=== PATIENT | male | born 1945 | race Two or more races ===

== ENCOUNTER 2024-10-25 15:01 | Emergency (ER) | payer BC, OTHER ==
[~2024-10-25] VITALS: Ht 160 cm; Wt 113.0 kg
--- NOTE | 2024-10-25 16:00 | DVH ---
EXAM: XY CHEST PORTABLE TECHNIQUE: Single frontal chest radiograph CLINICAL HISTORY: SYNCOPE COMPARISON: None Findings/Impression: Frontal chest radiograph demonstrates no acute osseous or superficial soft tissue abnormalities. The trachea is midline. The cardiac silhouette and mediastinum are within normal limits. 0.8 cm nodule along the right lateral lower lung field may relfect a calficied granuloma versus pulmo nary nodule. No pneumothorax, pleural effusions, or consolidations.
[2024-10-25 16:20] LABS: Alanine Aminotransferase 10 U/L (7-40); Albumin 4.6 g/dL (3.2-4.8); Alkaline Phosphatase 95 U/L (46-116); Anion Gap 9 (5-15); BUN/Creatinine Ratio 13.1 (10.0-20.0); Bilirubin, Total 0.7 mg/dL (0.2-1.0); Blood Urea Nitrogen 20 mg/dL (9-23); Calcium 9.8 mg/dL (8.7-10.4); Carbon Dioxide 24 mmol/L (20-31); Chloride 102 mmol/L (98-107); Potassium 4.3 mmol/L (3.5-5.1); Total Protein 7.9 g/dL (5.7-8.2)
[2024-10-25 16:24] LABS: Aspartate Aminotransferase 12 U/L (13-40); Glucose 137 mg/dL (74-106); Sodium 135 mmol/L (136-145)
[2024-10-25 16:29] LABS: Basophils # (auto) 0 10 ^3/uL (0-0.2); Basophils % (auto) 0.8 % (0.0-2.0); Eosinophils # (auto) 0.1 10 ^3/uL (0-0.8); Eosinophils % (auto) 2.3 % (0.0-7.0); Hematocrit 42.5 % (41.0-53.0); Hemoglobin 14.2 g/dL (13.5-17.5); Lymphocytes # (auto) 1.7 10 ^3/uL (0.4-5.4); Lymphocytes % (auto) 29.6 % (10.0-50.0); Mean Corpuscular Hemoglobin 31.5 pg (28.0-32.0); Mean Corpuscular Hgb Conc. 33.4 g/dL (32.0-36.0); Mean Corpuscular Volume 94.2 fL (80.0-100.0); Monocytes # (auto) 0.4 10 ^3/uL (0-1.3); Monocytes % (auto) 7.2 % (0.0-12.0); Neutrophils # (auto) 3.5 10 ^3/uL (1.6-8.6); Neutrophils % (auto) 60.1 % (37.0-80.0); Nucleated Red Blood Cells % 0.1 %; Platelet Count (auto) 260 10^3/uL (140-450); Red Blood Cells 4.51 10^6/uL (4.5-5.90); Red Cell Distribution Width 14.5 % (11.8-14.3); White Blood Cell 5.8 10^3/uL (4.4-10.8)
--- NOTE | 2024-10-25 16:39 | ED.PDOC ---
HPI Comments Marc HPI: Poor Historian. HPI: 79 y/o M, presents to the ED for CC of dizziness. Patient was sitting on the couch today and then when he was trying to get up to go to the bathroom as soon as he got up he felt very lightheaded and fell back into the couch without any head injury or loss of consciousness. Patient states he took all his morning blood pressure medications which he does not recall. patient is unable to recall name of prescriptions. Patient is a poor historian and no other medical history is obtainable at this time. Initial Vitals: Temp:97.1 BP:125/70 HR:65 RR:18 O2 Sat.:98 Past Medical History:HTN Past Surgical History: Denies Social History: Denies smoking, ETOH, and drug use Medication: Denies Allergies: NKDA REVIEW OF SYSTEMS: CONSTITUTIONAL: Denies acute: fever, diaphoresis, chills, HEAD: Denies acute: headache, photophobia Eyes: Denies acute: Double vision, vision loss, eye pain, eye discharge. EARS: Denies acute: tinnitus, hearing loss, ear discharge, ear pain, THROAT: Denies acute: sore throat, swelling, difficulty swallowing , pain with swa llowing, change in voice. NECK: Denies acute: neck pain, neck swelling, stiff neck. HEART: Denies acute : chest pain, palpitations, LUNGS: Denies acute: SOB, wheezing, cough, hemoptysis ABDOMEN: Denies acute: abdominal pain, Nausea, Vomiting, diarrhea, melena , hematemesis, hematochezia SKIN: Denies acute: rash, redness, lesions, itchiness. EXTREMITIES: Denies acute: calf pain, numbness, tingling, weakness, denies pain in extremity. Denies acute: Low back pain. Neuro: Denies acute: focal neurological deficit, motor or sensory focal neurological deficit, tremors, seizure like activity, confusion, , change in mental status, loss of bowel or bladder function, cauda equina like symptoms. : Denies acute: dysuria, hematuria, flank pain, increase in urinary frequency. PSYCH: Denies acute: hallucination, suicidal ideation, homicidal ideation. PHYSICAL EXAM: General: no acute distress, awake and alert. Head: normocephalic, atraumatic. Neck: supple, trachea is midline, no swelling. Throat: Normal phonation. Eyes:, no erythema, no purulent discharge, no proptosis, no icterus. Heart: regular rate, regular rhythm, no significant murmur appreciated. Lungs: no apparent respiratory distress, Able to speak in full sentences. No wheezing, no rhonchi, no crackles. No stridors Clear to auscultation bilaterally. Abdomen: non tender to palpation, non distended, soft, no guarding, no rebound, + bowel sounds. Neuro: Awake, Alert, oriented to name, self, situation, follows commands GCS=15. Speech is normal. Skin: no petechia, no purpura, no cyanosis, non-pale, not jaundice. Lower extremities: --trace bilateral- Pitting edema no deformity, no focal swelling, no calf TTP. Makes eye contact. moves all four extremities. Face: no apparent facial droop. No CVA tenderness to percussion bilaterally. Chief Complaint: Syncope Time Seen by MD: 16:20 Reviewed Notes: Nurses Notes, Medications, Allergies Information Source: Patient Mode of Arrival: EMS Severity: Moderate Timing: Hours Duration: Since onset Prehospital treatment: None Onset: At Rest Cardiac Risk Factors: None PE Risk Factors: None History of: None Associated Signs and Symptoms: None Was a procedure done? Was a procedure done?: No CP Differential Dx Differential Diagnosis: N/A Differential Diagnosis: Other (Includes but not limited to thyroid disease, encephalopathy, electrolyte abnormality, sepsis, infection, intracranial pathology, drug adverse effects, arrhythmia, kidney insufficiency, ACS, CVA, malignancy, anemia) X-Ray, Labs, Meds, VS Vital Signs Date Time Temp Pulse Resp B/P (MAP) Pulse Ox O2 Delivery O2 Flow Rate FiO2 10/26/24 01:01 72 16 97 Room Air* 0 21 10/26/24 00:04 138/75 (96) 10/25/24 23:50 98.5 76 17 127/72 (90) 96 98.5 10/25/24 15:22 97.0 65 18 125/70 (88) 98 10/25/24 15:03 66 Lab Test 10/25/24 18:57 10/25/24 16:56 10/25/24 16:55 10/25/24 15:46 Range/Units Troponin I High Sensitivity 34 35 37 </=54 ng/L Urine Color Yellow Yellow Urine Clarity Turbid H Clear Urine pH 5.5 5.0-9.0 Urine Specific [place]y 1.024 1.001-1.035 Urine Protein 1+ H Negative Urine Ketones Negative Negative Urine Blood Negative Negative /uL Urine Nitrite Negative Negative Urine Bilirubin Negative Negative Urine Urobilinogen 3 H Negative mg/dL Urine Leukocyte Esterase Negative Negative /uL Urine RBC 2 0 - 3 /hpf Urine Microscopic WBC 3 0-3 /HPF Urine Squamous Epithelial Cells Few <5 /hpf Urine Amorphous Crystals Few None Seen /hpf Urine Bacteria None seen None Seen /hpf Urine Hyaline Casts Many 0 - 2 /lpf Urine Mucus Few None Seen Urine Glucose Normal Normal mg/dL Urine Opiates Screen Neg NEGATIVE Urine Fentanyl Screen Neg NEGATIVE Urine Barbiturates Screen Neg NEGATIVE Urine Phencyclidine Screen Neg NEGATIVE Urine Amphetamines Screen Neg NEGATIVE Urine Benzodiazepines Screen Neg NEGATIVE Urine Cocaine Screen Neg NEGATIVE Urine Cannabinoids Screen Neg NEGATIVE White Blood Count 5.8 4.4-10.8 10^3/uL Red Blood Count 4.51 4.5-5.90 10^6/uL Hemoglobin 14.2 13.5-17.5 g/dL Hematocrit 42.5 41.0-53.0 % Mean Corpuscular Volume 94.2 80.0-100.0 fL Mean Corpuscular Hemoglobin 31.5 28.0-32.0 pg Mean Corpuscular Hemoglobin Concent 33.4 32.0-36.0 g/dL Red Cell Distribution Width 14.5 H 11.8-14.3 % Platelet Count 260 140-450 10^3/uL Mean Platelet Volume 8.0 6.9-10.8 fL Neutrophils (%) (Auto) 60.1 37.0-80.0 % Lymphocytes (%) (Auto) 29.6 10.0-50.0 % Monocytes (%) (Auto) 7.2 0.0-12.0 % Eosinophils (%) (Auto) 2.3 0.0-7.0 % Basophils (%) (Auto) 0.8 0.0-2.0 % Neutrophils # (Auto) 3.5 1.6-8.6 10 ^3/uL Lymphocytes # (Auto) 1.7 0.4-5.4 10 ^3/uL Monocytes # (Auto) 0.4 0-1.3 10 ^3/uL Eosinophils # (Auto) 0.1 0-0.8 10 ^3/uL Basophils # (Auto) 0 0-0.2 10 ^3/uL Nucleated Red Blood Cells 0.1 % D-Dimer, Quantitative 0.60 H 0.0-0.49 mg/L FEU Sodium Level 135 L 136-145 mmol/L Potassium Level 4.3 3.5-5.1 mmol/L Chloride Level 102 98-107 mmol/L Carbon Dioxide Level 24 20-31 mmol/L Anion Gap 9 5-15 Blood Urea Nitrogen 20 9-23 mg/dL Creatinine 1.53 H 0.700-1.30 mg/dL Glomerular Filtration Rate Calc 46 >90 mL/min BUN/Creatinine Ratio 13.1 10.0-20.0 Serum Glucose 137 H 74-106 mg/dL Lactic Acid Level 1.7 0.4-2.0 mmol/L Calcium Level 9.8 8.7-10.4 mg/dL Total Bilirubin 0.7 0.2-1.0 mg/dL Aspartate Amino Transferase (AST) 12 L 13-40 U/L Alanine Aminotransferase (ALT) 10 7-40 U/L Alkaline Phosphatase 95 46-116 U/L B-Type Natriuretic Peptide 110.34 0-100 pg/mL Total Protein 7.9 5.7-8.2 g/dL Albumin 4.6 3.2-4.8 g/dL [place] [address] Ph: [phone] DIAGNOSTIC IMAGING Diagnostic Imaging Report : [id number] Signed PATIENT: VERONICA PEREZ ACCT: [id number] UNIT: [id number] : 1945 LOC: ER ROOM / BED: / AGE / SEX: 79 / M ADM STATUS: REG ER SERVICE 1532 ORDERING PHYSICIAN: MIGUEL ÁNGEL GRANADOS DO PROCEDURE(s): CXRP - CHEST PORTABLE REASON: SYNCOPE ORDER NUMBER(s): [id number], ACCESSION NUMBER(s): [id number] EXAM: XY CHEST PORTABLE TECHNIQUE: Single frontal chest radiograph CLINICAL HISTORY: SYNCOPE COMPARISON: None Findings/Impression: Frontal chest radiograph demonstrates no acute osseous or superficial soft tissue abnormalities. The trachea is midline. The cardiac silhouette and mediastinum are within normal limits. 0.8 cm nodule along the right lateral lower lung field may relfect a calficied granuloma versus pulmonary nodule. No pneumothorax, pleural effusions, or consolidations. ATED BY: ALEAH LÓPEZ DO DICTATED DATE/TIME: 10/25/241557 SIGNED BY: ALEAH LÓPEZ DO SIGNED DATE/TIME: 10/25/241557 CC: [place] [id number] Ph: [phone] DIAGNOSTIC IMAGING Diagnostic Imaging Report : [id number] Signed PATIENT: VERONICA PEREZ ACCT: [id number] UNIT: [id number] : 1945 LOC: ER ROOM / BED: / AGE / SEX: 79 / M ADM STATUS: REG ER SERVICE 17 ORDERING PHYSICIAN: MIGUEL ÁNGEL GRANADOS DO PROCEDURE(s): CTACH - CT ANGIO CHEST CONTRAST REASON: near syncope ORDER NUMBER(s): [id number], ACCESSION NUMBER(s): [id number] INDICATION: near syncope COMPARISON: None TECHNIQUE: Multidetector CTA of the chest was performed of the chest with 100 cc of intravenous contrast. PULMONARY ANGIOGRAPHY PROTOCOL was utilized using a bolus-tracking technique centered on the main pulmonary artery. Axial, coronal and sagittal multiplanar and MIP reformats were performed. Radiation Dose : 1. Chest: CTDI volume is 27.37 mGy. Dose-length product is 1104.57 mGy*cm The dose indicators for CT are the volume Computed Tomography (CT) Dose Index (CTDIvol) and the Dose Length Product (DLP), and are measured in units of mGy and mGy-cm, respectively. These indicators are not patient dose, but values generated from the CT scanner acquisition factors. The report includes radiation exposure data for exposures received during this examination. Findings: Thyroid gland with no obvious nodules. Inadequate contrast bolus timing within the pulmonary arteries to evaluate for pulmonary embolism with no pulmonary embolism noted centrally. Can not exclude pulmonary embolism within the distal segmental and subsegmental pulmonary arteries. The pulmonary trunk is normal in size. No evidence of aortic aneurysm. Mild atherosclerotic calcification of the aorta. Mild cardiomegaly with slight reflux of contrast into the IVC. [id number] atherosclerotic calcification of the coronary arteries. There appears to be partially calcified mediastinal and right hilar lymph nodes Right anterior upper lobe and bibasilar atelectasis. Calcified granuloma within the right lower lobe. No pneumothorax, pleural effusion or focal airspace consolidation. Cholelithiasis with no evidence of acute cholecystitis. Calcified granulomas within the spleen. Mild hepatomegaly. 2.2 cm left adrenal nodule measuring up to 22 Hounsfield units with additional 1.9 cm left adrenal nodule measuring up to 2 Hounsfield units which may represent an adenoma. There is 1.6 cm right adrenal nodule measuring up to 17 Hounsfield units. Mild esophageal and gastric wall thickening. The soft tissues are unremarkable. No evidence of acute bony abnormalities. Slightly increased cortical sclerosis of the posterior ribs. IMPRESSION: Inadequate contrast bolus timing within the pulmonary arteries to evaluate for pulmonary embolism with no pulmonary embolism noted centrally. Can not exclude pulmonary embolism within the distal segmental and subsegmental pulmonary arteries. No evidence of aortic aneurysm. Limited evaluation for dissection. Mild cardiomegaly with slight reflux of contrast into the IVC. Correlate for right heart dysfunction. Wall thickening of the esophagus and stomach. Correlate for esophagitis and gastritis respectively. Bilateral adrenal nodules. Cholelithiasis with no evidence of acute cholecystitis. ATED BY: NATASHA KOHLI DO DICTATED DATE/TIME: 10/25/242122 SIGNED BY: NATASHA KOHLI DO SIGNED DATE/TIME: 10/25/242122 CC: Time of 1ST Reevaluation: 16:50 Reevaluation 1ST: Unchanged Time of 2ND Reevaluation: 00:05 (Orthostatics were obtained and are unremarkable. Patient denies any dizziness on reassessment) Reevaluation 2ND: Resolved Time of 3RD Reevaluation: 00:28 (Friends/family members at bedside at this time. Patient has hypertension, take sleeping pills and history of hype rtension. Patient has an appointment on the of this month with the his PCP. Patient was road tested and orthostatics were obtained and his numbers are fine.) Patient Education/Counseling: Diagnosis, Treatment Family Education/Counseling: No Family Present Comments Patient presented with the above HPI.-- DIZZINESS---workup was initiated. patient was found with the above mentioned diagnosis. the following medications were ordered: the following tests were ordered: LABS, CXR, CT ANGIO CHEST Patient ED course and VS have been stabilized. Patient has been reassessed in the ED and remained in a stable condition. Pertinent incidental findings were discussed with the patient and/or family. Patient/family voices understanding and is agreeable with plan. Patient has been observed in the ED adequate length of time to insure improvement/stability. Escalation of care considered: Consideration of escalation to observation or admission Patient was DISCHARGED home in a stable condition. All the reports of any imaging studies that were ordered by myself were reviewed by myself. Departure 1 Departure Time of Disposition: 21:32 Impression: Primary Impression: Dizziness Additional Impression: Abnormal finding on CT scan Disposition: HOME / SELF CARE / HOMELESS Condition: Stable Additional Instructions: Additional discharge instructions: You MUST follow-up with your primary care/family doctor in 1 to 2 days. If you are unable to see your primary care/family doctor, please return to our emergency room for re-assessment and re-evaluation in 1 to 2 days. Return to the emergency room here in our facility or to the nearest ER [facility] if your symptoms change or worsen. CONSULTATIONS: you MUST Follow-up for consultation as soon as possible with: -cardiology in 1-2 days. Please call for appointment. You MUST call the consultants office yourself to make an appointment. You may need to arrange that through your insurance and/or your primary/family doctor. If you are unable to see the in home sales consultant in 1 to 2 days, you must return to our emergency room (or any other ER of your choice) for re-assessment and re- evaluation. Adequate fluid hydration. Monitoring blood pressure at home at least 3 times a day. Ambulates with the assistance at all times. Fall precautions. Below is a copy of your radiological report for follow up: [address] [address] Ph: [phone] DIAGNOSTIC IMAGING Diagnostic Imaging Report : [id number] Signed PATIENT: VERONICA PEREZ ACCT: [id number] UNIT: [id number] : 1945 LOC: ER ROOM / BED: / AGE / SEX: 79 / M ADM STATUS: REG ER SERVICE 2475 ORDERING PHYSICIAN: MIGUEL ÁNGEL GRANADOS DO PROCEDURE(s): CTACH - CT ANGIO CHEST CONTRAST REASON: near syncope ORDER NUMBER(s): [id number], ACCESSION NUMBER(s): [id number] INDICATION: near syncope COMPARISON: None TECHNIQUE: Multidetector CTA of the chest was performed of the chest with 100 cc of intravenous contrast. PULMONARY ANGIOGRAPHY PROTOCOL was utilized using a bolus-tracking technique centered on the main pulmonary artery. Axial, coronal and sagittal multiplanar and MIP reformats were performed. Radiation Dose : 1. Chest: CTDI volume is 27.37 mGy. Dose-length product is 1104.57 mGy*cm The dose indicators for CT are the volume Computed Tomography (CT) Dose Index (CTDIvol) and the Dose Length Product (DLP), and are measured in units of mGy and mGy-cm, respectively. These indicators are not patient dose, but values generated from the CT scanner acquisition factors. The report includes radiation exposure data for exposures received during this examination. Findings: Thyroid gland with no obvious nodules. Inadequate contrast bolus timing within the pulmonary arteries to evaluate for pulmonary embolism with no pulmonary embolism noted centrally. Can not exclude pulmonary embolism within the distal segmental and subsegmental pulmonary ar teries. The pulmonary trunk is normal in size. No evidence of aortic aneurysm. Mild atherosclerotic calcification of the aorta. Mild cardiomegaly with slight reflux of contrast into the IVC. [id number] atherosclerotic calcification of the coronary arteries. There appears to be partially calcified mediastinal and right hilar lymph nodes Right anterior upper lobe and bibasilar atelectasis. Calcified granuloma within the right lower lobe. No pneumothorax, pleural effusion or focal airspace consolidation. Cholelithiasis with no evidence of acute cholecystitis. Calcified granulomas within the spleen. Mild hepatomegaly. 2.2 cm left adrenal nodule measuring up to 22 Hounsfield units with additional 1.9 cm left adrenal nodule measuring up to 2 Hounsfield units which may represent an adenoma. There is 1.6 cm right adrenal nodule measuring up to 17 Hounsfield units. Mild esophageal and gastric wall thickening. The soft tissues are unremarkable. No evidence of acute bony abnormalities. Slightly increased cortical sclerosis of the posterior ribs. IMPRESSION: Inadequate contrast bolus timing within the pulmonary arteries to evaluate for pulmonary embolism with no pulmonary embolism noted centrally. Can not exclude pulmonary embolism within the distal segmental and subsegmental pulmonary arteries. No evidence of aortic aneurysm. Limited evaluation for dissection. Mild cardiomegaly with slight reflux of contrast into the IVC. Correlate for right heart dysfunction. Wall thickening of the esophagus and stomach. Correlate for esophagitis and gastritis respectively. Bilateral adrenal nodules. Cholelithiasis with no evidence of acute cholecystitis. ATED BY: NATASHA KOHLI DO DICTATED DATE/TIME: 10/25/242122 SIGNED BY: NATASHA KOHLI DO SIGNED DATE/TIME: 10/25/242122 CC: [place] [id number] Ph: [phone] DIAGNOSTIC IMAGING Diagnostic Imaging Report : [id number] Signed PATIENT: VERONICA PEREZ ACCT: [id number] UNIT: [id number] : 1945 LOC: ER ROOM / BED: / AGE / SEX: 79 / M ADM STATUS: REG ER SERVICE 153 ORDERING PHYSICIAN: MIGUEL ÁNGEL GRANADOS DO PROCEDURE(s): CXRP - CHEST PORTABLE REASON: SYNCOPE ORDER NUMBER(s): [id number], ACCESSION NUMBER(s): [id number] EXAM: XY CHEST PORTABLE TECHNIQUE: Single frontal chest radiograph CLINICAL HISTORY: SYNCOPE COMPARISON: None Findings/Impression: Frontal chest radiograph demonstrates no acute osseous or superficial soft tissue abnormalities. The trachea is midline. The cardiac silhouette and mediastinum are within normal limits. 0.8 cm nodule along the right lateral lower lung field may relfect a calficied granuloma versus pulmonary nodule. No pneumothorax, pleural effusions, or consolidations. ATED BY: ALEAH LÓPEZ DO DICTATED DATE/TIME: 10/25/241557 SIGNED BY: ALEAH LÓPEZ DO SIGNED DATE/TIME: 10/25/241557 CC: Discharged With: Self Stability Stability form required: No Heart Score Heart Score: Heart Score Response (Comments) Value History N/A 0 EKG N/A 0 Age N/A 0 Risk Factors N/A 0 Troponin N/A 0 Total 0 I personally scribed for MIGUEL ÁNGEL GRANADOS DO ([email or web address]) on 10/25/24 at 16:39. Electronically submitted by Elizabeth Chaudhary ([email or web address]). I personally scribed for MIGUEL ÁNGEL GRANADOS DO ([email or web address]) on 10/25/24 at 18:28. Electronically submitted by Elizabeth Chaudhary ([email or web address]). I personally scribed for MIGUEL ÁNGEL GRANADOS DO ([email or web address]) on 10/25/24 at 21:47. Electronically submitted by Paresh Pederson ([email or web address]). MIGUEL ÁNGEL GRANADOS DO Oct 25, 2024 16:39
[2024-10-25 16:57] LABS: Urine Bacteria None Seen /hpf (None Seen)
[2024-10-25 17:48] LABS: Cannabinoid Screen, Urine Neg (NEGATIVE)
--- NOTE | 2024-10-25 17:56 | ECG ---
[facility] Test Date: 2024-10-25 Test Time: 15:03:34 Pat Name: VERONICA PEREZ Department: ER Room: Gender: M Learning Designer: PATRICK : 1945 Requested By: AMOR PHILLIPS Order Number: [id number] Reading MD: Gold Jimenez Measurements Intervals [place] Rate: 66 P: 21 IL: 309 QRS: -8 QRSD: 100 T: 173 QT: 432 QTc: 453 Interpretive Statements Sinus rhythm Prolonged IL interval Inferior infarct, old Abnrm T, consider ischemia, anterolateral lds Electronically Signed On 10-26-2024 8:55:35 PST by Gold Jimenez Please click the below link to view image of tracing.
[2024-10-25 18:23] LABS: Amphetamine Screen, Urine Neg (NEGATIVE); Barbiturate Scree,Urine Neg (NEGATIVE); Benzodiazephine Screen, Urine Neg (NEGATIVE); Cocaine Screen, Urine Neg (NEGATIVE); Opiate Scree,Urine Neg (NEGATIVE); Phencyclidine Screen, Urine Neg (NEGATIVE); Urine Amorphous Crystal FEW /hpf (None Seen); Urine Blood Negative /uL (Negative); Urine Clarity Turbid (Clear); Urine Color Yellow (Yellow); Urine Hyaline Cast MANY /lpf (0 - 2); Urine Mucus FEW (None Seen); Urine Protein, UAD 1+ (Negative); Urine Specific Gravity 1.024 (1.001-1.035); Urine Squamous Epithelial Cell FEW /hpf (<5); Urine Urobilinogen 3 mg/dL (Negative); Urine WBC 3 /HPF (0-3); Urine pH 5.5 (5.0-9.0)
[2024-10-25] MEDS: IOHEXOL 350 MG/ML 100ML IJ ONE (20:29)
--- NOTE | 2024-10-25 21:26 | DVH ---
INDICATION: near syncope COMPARISON: None TECHNIQUE: Multidetector CTA of the chest was performed of the chest with 100 cc of intravenous contr ast. PULMONARY ANGIOGRAPHY PROTOCOL was utilized using a bolus-tracking technique centered on the juan n pulmonary artery. Axial, coronal and sagittal multiplanar and MIP reformats were performed. Radiation Dose : 1. Chest: CTDI volume is 27.37 mGy. Dose-length product is 1104.57 mGy*cm The dose indicators for CT are the volume Computed Tomography (CT) Dose Index (CTDIvol) and the Dose Length Product (DLP), and are measured in units of mGy and mGy-cm, respectively. These indicators are not patient dose, but values generated from the CT scanner acquisition factors. The report includes radiation exposure data for exposures received during this examination. Findings: Thyroid gland with no obvious nodules. Inadequate contrast bolus timing within the pulmonary arteries to evaluate for pulmonary embolism wit h no pulmonary embolism noted centrally. Can not exclude pulmonary embolism within the distal segmen tung and subsegmental pulmonary arteries. The pulmonary trunk is normal in size. No evidence of aortic aneurysm. Mild atherosclerotic calcification of the aorta. Mild cardiomegaly with slight reflux of contrast into the IVC. [id number] atherosclerotic calci fication of the coronary arteries. There appears to be partially calcified mediastinal and right hilar lymph nodes Right anterior upper lobe and bibasilar atelectasis. Calcified granuloma within the right lower lobe. No pneumothorax, pleural effusion or focal airspace consolidation. Cholelithiasis with no evidence of acute cholecystitis. Calcified granulomas within the spleen. Mild hepatomegaly. 2.2 cm left adrenal nodule measuring up to 22 Hounsfield units with additional 1.9 cm left adrenal nodule measuring up to 2 Hounsfield units which may represent an adenoma. There is 1.6 c m right adrenal nodule measuring up to 17 Hounsfield units. Mild esophageal and gastric wall thickening. The soft tissues are unremarkable. No evidence of acute bony abnormalities. Slightly increased corti luis sclerosis of the posterior ribs. IMPRESSION: Inadequate contrast bolus timing within the pulmonary arteries to evaluate for pulmonary embolism wit h no pulmonary embolism noted centrally. Can not exclude pulmonary embolism within the distal segment al and subsegmental pulmonary arteries. No evidence of aortic aneurysm. Limited evaluation for dissection. Mild cardiomegaly with slight reflux of contrast into the IVC. Correlate for right heart dysfunction . Wall thickening of the esophagus and stomach. Correlate for esophagitis and gastritis respectively. Bilateral adrenal nodules. Cholelithiasis with no evidence of acute cholecystitis.
[2024-10-25 23:50] VITALS: TEMP 98.5
[2024-10-26 00:04] VITALS: BP 138/75
[2024-10-26 01:01] VITALS: PULSE 72; RESP 16; O2SAT 97
== END 2024-10-26 01:18 | disposition home or self-care (01) ==
LOC: EDBD 15:01 → ER 15:01
DX: R42 Dizziness and giddiness (principal); R93.89 Abnormal findings on diagnostic imaging of other specified body structures; I10 Essential (primary) hypertension; R06.02 Shortness of breath; Z79.899 Other long term (current) drug therapy
CPT/HCPCS: 36415; 71045; 71275; 80053; 80307; 81001; 83605; 83880; 84484; 85025; 85379; 93005; 99285; Q9967